=== PATIENT | male | born 1980 | race Caucasian/White ===

== ENCOUNTER 2018-01-25 19:50 | Emergency (ER) | payer SELFPAY | END 2018-01-25 21:15 | disposition home or self-care (01) | LOC: D.ER 19:50 | DX: S20.212A Contusion of left front wall of thorax, initial encounter (principal); Y04.2XXA Assault by strike against or bumped into by another person, initial encounter; Y93.89 Activity, other specified; Y92.89 Other specified places as the place of occurrence of the external cause; R06.02 Shortness of breath ==